=== PATIENT | male | born 2000 ===

== ENCOUNTER → 2024-08-10 03:23 | Outpatient (REF) | payer BC, SELFPAY ==
[2024-08-14 04:29] LABS: HPV, High Risk Not Detected; HPV, High Risk Source Anal
== END ==
LOC: CLAB 03:23
PROVIDERS: ATTENDING PHYSICIAN Surgery
DX: Z86.19 Personal history of other infectious and parasitic diseases (principal)
CPT/HCPCS: 87624; 88112

== ENCOUNTER 2024-09-15 17:51 | Emergency (ER) | payer BC, SELFPAY ==
[2024-09-15 17:54] VITALS: BP 151/99
--- NOTE | 2024-09-15 18:22 | ED.GENMED ---
History of Present Illness
General
Chief Complaint: Crisis Evaluation
Time Seen by Provider: 09/15/24 18:14
History of Present Illness
History of Present Illness:
TIME OF INITIAL ENCOUNTER: 6:25 PM
HPI: The patient presents due to strong thoughts of suicide. He has had suicidal thoughts extensively in the past. He had a plan today. He went to a gun range planning on killing himself. However the gun range was closed for maintenance. He
texted his family and his family brought him here. He states that he has been under a lot of stress at work and [employer]. He also admits to some drug use, most recently cocaine and alcohol just about 1 week ago. He also reports chronic anal
leakage and states he has been to colorectal surgery and has had numerous tests and nothing was found to be abnormal. He also has ongoing concerns for eosinophilic esophagitis and is taking an acid irrigation laborer but nothing helps.
EXAM:
GENERAL: Well appearing in no distress
HEENT: Moist oral mucosa
CARDIOVASCULAR: No murmurs, normal heart rate, regular rhythm, No chest wall tenderness
PULMONARY: No respiratory distress, breath sounds are clear and equal
ABDOMEN: Soft with no peritoneal signs, no tenderness, patient refused digital rectal examination
NEUROLOGIC: Excellent strength all extremities, no coordination deficits
PSYCHIATRIC: Appropriate mental status, normal insight and judgement, somewhat of a flat affect
EXTREMITIES: Nontender, no edema, moves all extremities equally
SKIN: There is a splotchy confluent macular rash to the anterior neck but patient is not bothered by this
NUMBER AND COMPLEXITY OF PROBLEMS ADDRESSED AT THE ENCOUNTER
� Chronic conditions affecting care: Eosinophilic esophagitis, anxiety/depression, chronic anal leakage of uncertain etiology
� Acute Exacerbation and/or Progression of Chronic Illness: This is a subacute but worsening problem
� Differential Diagnosis includes: Suicidal ideation, no evidence for any toxidrome based on exam
AMOUNT AND/OR COMPLEXITY OF DATA TO BE REVIEWED AND ANALYZED
� I performed an independent evaluation of and my interpretation is:
EKG:
CT:
X-rays:
Laboratory Studies: White count and hemoglobin are normal, chemistries unremarkable, alcohol, salicylate, and Tylenol undetected
Other:
� Review of other/old records: No old records available for review
� Clinical information was obtained by an independent historian: Parents were initially in the room however the patient asked them to leave upon my initial evaluation
� Prescriptions/Medications Considered but not given: No need for antipsychotic
� Further testing considered but not performed:
RISK OF COMPLICATIONS AND/OR MORBIDITY OR MORTALITY OF PATIENT MANAGEMENT
� Social determinants of health affecting care: Lives at home
� Discussion with other providers: Crisis
� Escalation of care including admission/observation vs risk of discharge considered: The patient does have a concerning plan for suicide attempt. This is his third suicidal gesture/attempt. In the past he held a knife to his
neck. More recently, about 8 years ago, he attempted to hang himself. He used to be on bupropion but is not on it anymore.
ANY OTHER UPDATES:
7:40 PM: Labs unremarkable. A lot of his medical complaints are chronic in nature and are not acute. Therefore I feel he is medically cleared for psychiatric placement. However, he does not appear intoxicated at this time. I also discussed case
with crisis again.
7:55 PM: I discussed with crisis. They are finishing up their assessment and then will be bed searching for the patient. He will go voluntarily. He continues to want help and has been cooperative.
Phy Exam
Physical Exam
Physical Exam:
See HPI
Course
Orders/Labs/Results
Orders:
Orders
09/15/24 18:02
Crisis Consult Urgent
Reason for Consult: active SI
09/15/24 19:08
Acetaminophen Urgent
Alcohol Urgent
Complete Blood Count/With Diff Urgent
Comprehensive Metabolic Panel Urgent
Lipase Urgent
Salicylate Urgent
09/15/24 19:09
ED Special Safety Observation ONCE
Observation level: One to Two
03/18/25 19:41
Add On- LAB Urgent
Tests Added?: alcohol
Abnormal Lab Results
09/15/24
19:08
RBC 4.57 L 10^6/uL
(4.70-6.10)
RDW 11.0 L %
(11.5-14.5)
Salicylates < 1.0 L mg/dl
(2.0-20.0)
Acetaminophen < 10 L ug/ml
(10-30)
09/15/24 19:08
09/15/24 19:08
Vital Signs
Initial and Last Documented VS:
Initial Vital Signs
Temp Pulse Resp BP Pulse Ox
36.9 C 81 16 151/99 100
09/15/24 17:54 09/15/24 17:54 09/15/24 17:54 09/15/24 17:54 09/15/24 17:54
Last Documented Vital Signs
Temp Pulse Resp BP Pulse Ox
36.9 C 81 16 151/99 100
09/15/24 17:54 09/15/24 17:54 09/15/24 17:54 09/15/24 17:54 09/15/24 17:54
*Critical Care Note
Total Time (30-74mins, 75-104mins- exclusive of procedures): Not Applicable
ED Attending Note
-
Portions of this chart may have been created with voice recognition software.� Occasional wrong word or��sound alike� substitutions may have occurred due to the inherent limitations of voice recognition software.
Discharge Plan
Departure
Patient Disposition: Psych Facility
Date of Disposition: 09/15/24
Time of Disposition: 20:29
Discharge Problem:
Suicide gesture
Referrals:
Luis E Lujan MD [Family Provider] -
Interventions
Interventions:
*Risk Screen - Suicide Last Done: 09/15/24 17:54
*Neglect/Abuse Screening Last Done: 09/15/24 17:54
*ED- Fall Risk Assessment Last Done: 09/15/24 19:12
*ED COVID-19 Vaccine History Last Done: 09/15/24 17:54
*Nursing Disposition Last Done: 09/15/24 23:45
ED-Psychological Assessment Last Done: 09/15/24 19:12
Discharge Date and Time
Discharge Date/Time: 09/15/24 23:45
Print Language: CYMRAES
--- NOTE | 2024-09-15 19:00 | EDRN ---
Assumed care of pt. at this time, pt. did vocalize suicidal ideation to outgoing RN; however, pt. is cooperative, voluntary, and has both parents and security at bedside w/ pt., Pt. currently in crisis area for safety. ED attending aware, no further
orders for additional observation at this time.
[2024-09-15 19:26] LABS: % Basophils 1.3 % (0-2); % Eosinophils 3.8 % (0-6); % Immature Granulocytes 0.2 % (0-0.5); % Lymphocytes 38.6 % (20.5-51.1); % Monocytes 7.8 % (1.7-9.3); % Neutrophils 48.3 % (42.2-75.2); Absolute Basophils 0.1 10^3/uL (0-0.2); Absolute Eosinophils 0.2 10^3/uL (0-0.7); Absolute Monocytes 0.4 10^3/uL (0.1-0.6); Absolute Neutrophils 2.5 10^3/uL (1.4-6.5); Hematocrit 39.1 % (39.0-52.0); Mean Corp Hgb Conc. 35.8 g/dL (33.0-37.0); Mean Corpuscular Hgb 30.6 pg (27.0-31.0); Mean Corpuscular Volume 85.6 fL (80.0-94.0); Mean Platelet Volume 10.3 fL (7.4-10.4); Nucleated Red Blood Cells % 0 % (-); Platelet Count 205 10^3/uL (130-400); Red Blood Cell Count 4.57 10^6/uL (4.70-6.10); White Blood Cell Count 5.2 10^3/uL (4.8-10.8)
[2024-09-15 19:37] LABS: ALT (SGPT) 41 U/L (0-50); AST (SGOT) 30 U/L (17-59); Acetaminophen < 10 ug/ml (10-30); Albumin 4.6 g/dl (3.5-5.0); Alkaline Phosphatase 45 U/L (38-126); Blood Urea Nitrogen 15 mg/dl (9-20); Calcium 9.8 mg/dl (8.4-10.2); Carbon Dioxide 29 mmol/L (22-30); Chloride 103 mmol/L (98-107); Glucose 93 mg/dl (70-99); Lipase 113 U/L (23-300); Potassium 3.9 mmol/L (3.5-5.1); Salicylate < 1.0 mg/dl (2.0-20.0); Sodium 139 mmol/L (135-145); Total Protein 7.1 g/dl (6.3-8.2); eGFR > 60.00
== END 2024-09-15 23:45 ==
LOC: EMR 17:51
PROVIDERS: EMERGENCY PHYSICIAN Emergency Medicine; FAMILY PHYSICIAN Family Medicine
DX: R45.851 Suicidal ideations (principal); Z56.6 Other physical and mental strain related to work; F10.90 Alcohol use, unspecified, uncomplicated; F14.90 Cocaine use, unspecified, uncomplicated; Z91.51 Personal history of suicidal behavior
CPT/HCPCS: 99285; 80053; 80143; 80179; 82077; 83690; 85025